=== PATIENT | female | born 1950 ===

== ENCOUNTER 2018-11-29 16:32 | Emergency (ER) | payer OTHER ==
[2018-11-29 16:49] VITALS: RESP 18; TEMP 98.1; O2SAT 97
--- NOTE | 2018-11-29 17:15 | ED PDOC ---
Arrival/HPI - General Chief Complaint: GI Problem Time Seen by Provider: 11/29/18 16:46 Historian: Patient - History of Present Illness Narrative History of Present Illness (Text): 11/29/18 17:12 CC: vomiting, cough, feeling weak HPI: 68 yo female w/ PMH of Hypertension, GERD, and Vit D Deficiency comes to Emergency department for evaluation of cough, vomiting, and feeling weak. Patient states this started about three weeks ago when she had similar symptoms w/ productive sputum. [facility] ?Azithromycin which she completed for 10 days. Patient states initially after completing the course of abx she felt better. However, she soon began to develop the cough again which then progressed to weakness and vomiting as well. Patient has had these symptoms for past 2-3 days and decided to come to hospital before she got worse. Admits to fevers, cough, feeling weak, and nausea. Denies chest pain, shortness of breath, n/v, constipation or diarrhea, and dysuria. Time/Duration: < week Symptom Onset: Gradual Symptom Course: Worsening Activities at Onset: Rest Context: Sitting Past Medical History - Provider Review Nursing Documentation Reviewed: Yes - Reproductive Menopause: Yes - Cardiac Hx Hypertension: Yes - Hematological/Oncological Hx Anemia: Yes - Musculoskeletal/Rheumatological Hx Arthritis: Yes - Gastrointestinal Hx Gastroesophageal Reflux: Yes - Psychiatric Hx Depression: Yes Hx Substance Use: No - Surgical History Hx Orthopedic Surgery: Yes (B/L knee replacement) Other/Comment: Phil Ríos Family/Social History - Physician Review Nursing Documentation Reviewed: Yes Family/Social History: No Known Family HX Smoking Status: Current Some Days Smoker Hx Alcohol Use: No Hx Substance Use: No Allergies/Home Meds Allergies/Adverse Reactions: Allergies No Known Allergies Allergy (Verified 11/29/18 16:38) Review of Systems - Review of Systems Constitutional: Fevers. absent: Normal, Fatigue, Weight Change Eyes: Normal. absent: Vision Changes, Photophobia, Eye Pain ENT: Normal. absent: Hearing Changes, Tinnitus Respiratory: Cough, Sputum. absent: Normal, SOB Cardiovascular: Normal. absent: Chest Pain, Palpitations, Edema, Calf Pain Gastrointestinal: Nausea, Vomiting. absent: Normal, Abdominal Pain, Stool Changes, Constipation, Diarrhea Genitourinary Female: Normal. absent: Dysuria, Frequency, Hematuria Musculoskeletal: Normal. absent: Arthralgias, Back Pain, Neck Pain, Joint Swelling Skin: Normal. absent: Rash, Pruritis, Skin Lesions Neurological: Normal. absent: Headache, Dizziness, Focal Weakness Endocrine: Normal. absent: Diaphoresis, Polyuria, Polydipsia Psychiatric: Normal. absent: Anxiety, Depression Physical Exam Vital Signs Reviewed: Yes Vital Signs Temp Pulse Resp BP Pulse Ox 11/29/18 16:33 98.1 F 82 18 166/92 H 97 Temperature: Afebrile Blood Pressure: Hypertensive Pulse: Regular Respiratory Rate: Normal Appearance: Positive for: Well-Appearing, Non-Toxic, Comfortable Pain Distress: None Mental Status: Positive for: Alert and Oriented X 3 - Systems Exam Head: Present: Atraumatic, Normocephalic. No: Tenderness Pupils: Present: PERRL Extroacular Muscles: Present: EOMI Conjunctiva: Present: Normal Mouth: Present: Dry. No: Moist Mucous Membranes Pharnyx: Present: Normal. No: ERYTHEMA, EXUDATE, TONSILS ENLARGED, Peritonsilar Swelling, Uvular Deviation Neck: Present: Normal Range of Motion. No: Meningeal Signs, JVD Respiratory/Chest: Present: Clear to Auscultation, Good Air Exchange. No: Respiratory Distress, Accessory Muscle Use, Wheezes, Decreased Breath Sounds Cardiovascular: Present: Regular Rate and Rhythm, Normal S1, S2. No: Murmurs, Irregular Rhythm, Peripheal Pulses Present Abdomen: Present: Normal Bowel Sounds. No: Tenderness, Distention, Peritoneal Signs Upper Extremity: Present: Normal Inspection. No: Cyanosis, Edema, Tenderness Lower Extremity: Present: Normal Inspection. No: Edema, CALF TENDERNESS Neurological: Present: GCS=15, CN II-XII Intact, Speech Normal Skin: Present: Warm, Dry, Normal Color. No: Rashes Lymphatic: No: Cervical Adenopathy Psychiatric: Present: Alert, Oriented x 3, Normal Insight, Normal Concentration Medical Decision Making ED Course and Treatment: 11/29/18 17:20 Impression 68 yo female w/ PMH of Hypertension, GERD, and Vit D Deficiency comes to Emergency department for evaluation of cough, vomiting, and feeling weak. Plan -CBC -CMP -Chest X-ray -Rapid Flu Prior Visits No prior visits Progress Notes pending imaging and labs for dispo 11/29/18 18:53 Patient comfortable w/o complaints Patient understands that she must followup with her primary medical doctor Patient was instructed to use Dayquil for cough symptom. Re-evaluation Time: 18:53 Reassessment Condition: Re-examined, Improved - Lab Interpretations Lab Results: 11/29/18 17:40 11/29/18 17:40 Lab Results 11/29/18 17:40: Influenza Typ A,B (EIA) Negative for flu a/b 11/29/18 17:40: Sodium 139, Potassium 3.6, Chloride 109 H, Carbon Dioxide 19 L, Anion Gap 15, BUN 17, Creatinine 0.6 L, Est GFR ( Amer) > 60, Est GFR (Non-Af Amer) > 60, Random Glucose 125 H, Calcium 10.3, Total Bilirubin 0.5, AST 20, ALT 25, Alkaline Phosphatase 125, Total Protein 7.9, Albumin 4.5, Globulin 3.4, Albumin/Globulin Ratio 1.3 11/29/18 17:40: WBC 7.5, RBC 3.46 L, Hgb 11.0 L, Hct 33.4 L, MCV 96.5, MCH 31.8, MCHC 32.9, RDW 13.1, Plt Count 557 H, MPV 8.6, Neut % (Auto) 80.6 H, Lymph % (Auto) 14.5 L, [place] % (Auto) 4.2, Eos % (Auto) 0.3 L, Baso % (Auto) 0.4, Lymph # (Auto) 1.1 L, [place] # (Auto) 0.3, Eos # (Auto) 0.0, Baso # (Auto) 0.03, Absolute Neuts (auto) 6.07 I have reviewed the lab results: Yes Interpretation: All labs normal - RAD Interpretation Radiology Orders: 11/29/18 17:10 CHEST PORTABLE [RAD] Stat Biological Sciences Instructor: Radiologist Disposition/Present on Arrival - Present on Arrival Any Indicators Present on Arrival: No History of DVT/PE: No History of Uncontrolled Diabetes: No Urinary Catheter: No History of Decub. Ulcer: No History Surgical Site Infection Following: CABG - Mediastinitis, None - Disposition Have Diagnosis and Disposition been Completed?: Yes Diagnosis: Viral URI with cough Disposition: HOME/ ROUTINE Disposition Time: 18:55 Patient Plan: Discharge Condition: FAIR Additional Instructions: 1. Please followup with primary medical doctor within 7 days of discharge from hospital. 2. Recommended that patient use Dayquil for symptom control Prescriptions: Ondansetron [Zofran] 4 mg PO Q8H #12 tab Forms: [facility] (Nepali)
[2018-11-29 17:51] LABS: BASO # 0.03 K/mm3 (0.0-2.0); BASO % 0.4 % (0.0-3.0); EOS % 0.3 % (1.5-5.0); LYMPH # 1.1 (1.2-3.4); LYMPH % 14.5 % (22.0-35.0); MEAN CELL VOLUME 96.5 fl (80.0-105.0); MEAN CORPUSCULAR HEMOGLOBIN 31.8 pg (25.0-35.0); MEAN CORPUSCULAR HGB CONC 32.9 g/dl (31.0-37.0); MEAN PLATELET VOLUME 8.6 fl (7.0-11.0); MONO # 0.3 (0.1-0.6); MONO % 4.2 % (1.0-6.0); RBC 3.46 10^6/uL (3.5-6.1); RED CELL DISTRIBUTION WIDTH 13.1 % (11.5-14.5); WHITE BLOOD COUNT 7.5 10^3/uL (4.5-11.0)
--- NOTE | 2018-11-29 17:51 | RAD ---
Date of service: 11/29/2018 HISTORY: Cough COMPARISON: No prior. FINDINGS: LUNGS: No active pulmonary disease. PLEURA: No significant pleural effusion identified, no pneumothorax apparent. CARDIOVASCULAR: No atherosclerotic calcification present No radiographic findings to suggest acute or significant cardiovascular disease. OSSEOUS STRUCTURES: No significant abnormalities. VISUALIZED UPPER ABDOMEN: Normal. OTHER FINDINGS: None. IMPRESSION: No active disease.
[2018-11-29 18:00] LABS: ALB/GLOB RATIO 1.3 (1.1-1.8); ALBUMIN 4.5 g/dL (3.0-4.8); ALT/SGPT 25 U/L (7-56); AST/SGOT 20 U/L (14-36); BLOOD UREA NITROGEN 17 mg/dL (7-21); CALCIUM 10.3 mg/dL (8.4-10.5); GFR NON-AFRICAN AMERICAN > 60
[2018-11-29 19:04] VITALS: BP 115/58; PULSE 83
== END 2018-11-29 19:19 | disposition home or self-care (01) ==
LOC: ED 16:32
DX: J06.9 Acute upper respiratory infection, unspecified (principal); R05 Cough; I10 Essential (primary) hypertension; E55.9 Vitamin D deficiency, unspecified
CPT/HCPCS: 71045; 80053; 85025; 87804; 96374; 99284; J2405

== ENCOUNTER 2018-11-29 20:13 | Emergency (ER) | payer OTHER ==
[2018-11-29 20:54] VITALS: TEMP 98.3
[2018-11-29 21:46] LABS: PH,URINE 6.5 (4.7-8.0); URINE BILIRUBIN NEGATIVE (NEGATIVE); URINE BLOOD NEGATIVE (NEGATIVE); URINE GLUCOSE (UA) NEGATIVE (NEGATIVE); URINE LEUKOCYTE ESTERASE NEGATIVE Leu/uL (NEGATIVE); URINE PROTEIN 30 mg/dL (<30 mg/dL); URINE UROBILINOGEN 0.2 E.U./dL (<1 E.U./dL)
[2018-11-29 21:52] LABS: URINE APPEARANCE SLIGHT-CLOUDY (CLEAR); URINE COLOR YELLOW (YELLOW)
[2018-11-29] MEDS ORDERED: Iohexol 350 MG/100 ML VIAL ONE (22:09)
--- NOTE | 2018-11-29 23:24 | ED PDOC ---
Arrival/HPI - General Chief Complaint: GI Problem Historian: Patient - History of Present Illness Narrative History of Present Illness (Text): 11/29/18 23:21 68 year old female, whose past medical history includes Hypertension, GERD, and Vit D Deficiency presents to Emergency department complaining of headache, nausea, and dizziness for the past 1 day. Patient was in the ER earlier today and was discharged for different complaints. Patient denies any fever, chills, chest pain, shortness of breath, vomiting, diarrhea, urinary symptoms, back pain, neck pain, or any other complaints. Time/Duration: Other (1 day) Symptom Onset: Gradual Symptom Course: Unchanged Activities at Onset: Light Context: Home Past Medical History - Provider Review Nursing Documentation Reviewed: Yes - Cardiac Hx Cardiac Disorders: Yes Hx Hypertension: Yes - Hematological/Oncological Hx Blood Disorders: Yes Hx Anemia: Yes - Musculoskeletal/Rheumatological Hx Musculoskeletal Disorders: Yes Hx Arthritis: Yes - Gastrointestinal Hx Gastrointestinal Disorders: Yes Hx Gastroesophageal Reflux: Yes - Psychiatric Hx Psychophysiologic Disorder: Yes Hx Depression: Yes Hx Substance Use: No - Surgical History Hx Orthopedic Surgery: Yes (B/L knee replacement) Other/Comment: Bunoin Sx, fibroid removal Family/Social History - Physician Review Nursing Documentation Reviewed: Yes Family/Social History: No Known Family HX Smoking Status: Current Some Days Smoker Hx Alcohol Use: No Hx Substance Use: No Allergies/Home Meds Allergies/Adverse Reactions: Allergies No Known Allergies Allergy (Verified 11/29/18 20:49) Review of Systems - Physician Review All systems were reviewed & negative as marked: Yes - Review of Systems Constitutional: absent: Fevers, Other (chills) Respiratory: absent: SOB Cardiovascular: absent: Chest Pain Gastrointestinal: absent: Diarrhea, Nausea, Vomiting Genitourinary Female: absent: Dysuria, Frequency, Hematuria Musculoskeletal: absent: Back Pain, Neck Pain Neurological: absent: Headache, Dizziness Physical Exam Vital Signs Reviewed: Yes Vital Signs Temp Pulse Resp BP Pulse Ox 11/29/18 22:34 89 18 143/86 96 11/29/18 20:49 98.3 F 87 18 122/78 97 Temperature: Afebrile Blood Pressure: Normal Pulse: Regular Respiratory Rate: Normal Appearance: Positive for: Well-Appearing, Non-Toxic, Comfortable Pain Distress: None Mental Status: Positive for: Alert and Oriented X 3 - Systems Exam Head: Present: Atraumatic, Normocephalic Pupils: Present: PERRL Extroacular Muscles: Present: EOMI Conjunctiva: Present: Normal Mouth: Present: Moist Mucous Membranes Neck: Present: Normal Range of Motion Respiratory/Chest: Present: Clear to Auscultation, Good Air Exchange. No: Respiratory Distress, Accessory Muscle Use Cardiovascular: Present: Regular Rate and Rhythm, Normal S1, S2. No: Murmurs Abdomen: No: Tenderness, Distention, Peritoneal Signs Back: Present: Normal Inspection Upper Extremity: Present: Normal Inspection. No: Cyanosis, Edema Lower Extremity: Present: Normal Inspection. No: Edema Neurological: Present: GCS=15, Speech Normal Skin: Present: Warm, Dry, Normal Color. No: Rashes Psychiatric: Present: Alert, Oriented x 3, Normal Insight, Normal Concentration Medical Decision Making ED Course and Treatment: 11/29/18 23:23 Impression: 68 year old female presents complaining of headache, nausea, and dizziness for the past 1 day. Plan: -- CT Abd & Pelvis -- CT Head -- Labs -- Antivert, Toradol, Zofran Inj -- Urine Culture -- Rapid Flu -- Urinalysis w/ micro -- Reassess and disposition Prior Visits: Notes and results from previous visits were reviewed. Progress Notes: EXAM: CT Head without Intravenous Contrast. Electronically signed on November 29, 2018 10:37:24 PM EDT by: Samy Atwood M.D. IMPRESSION: 1. There is generalized parenchymal atrophy. 2. Severe chronic periventricular and subcortical microvascular disease is seen. 3. No acute intracranial pathology. EXAM: CT Abdomen and Pelvis with IV contrast Electronically signed on November 29, 2018 11:13:01 PM EDT by: Samy Atwood M.D. IMPRESSION: 1. A small hiatal hernia is noted. 2. Hepatomegaly. 3. Diverticulosis coli as described above; most pronounced in the left hemicolon. 4. Evidence of colitis involving the transverse, descending and sigmoid colon. 5. Findings suggestive of both acute and chronic cystitis. 6. Thickening of the adrenal glands bilaterally may indicate adrenal hyperplasia. 7. Evidence of advanced degenerative disc disease at all levels of the visualized lower thoracic spine and all levels of the lumbar spine. 11/29/18 23:45 On re-evaluation, patient feels better and is in no acute distress. I have discussed the results and plan with the patient, who expresses understanding. Patient in agreement with plan to be discharged home. Patient is stable for discharge. Patient was instructed to follow up with physician or return if symptoms worsen or new concerning symptoms arise. - Lab Interpretations Lab Results: Urine Color Yellow (YELLOW) 11/29/18 21:35 Urine Appearance Slight-cloudy (CLEAR) 11/29/18 21:35 Urine pH 6.5 (4.7-8.0) 11/29/18 21:35 Ur Specific [place] 1.025 (1.005-1.035) 11/29/18 21:35 Urine Protein 30 mg/dL (<30 mg/dL) H 11/29/18 21:35 Urine Glucose (UA) Negative mg/dL (NEGATIVE) 11/29/18 21:35 Urine Ketones Trace mg/dL (NEGATIVE) H 11/29/18 21:35 Urine Blood Negative (NEGATIVE) 11/29/18 21:35 Urine Nitrate Negative (NEGATIVE) 11/29/18 21:35 Urine Bilirubin Negative (NEGATIVE) 11/29/18 21:35 Urine Urobilinogen 0.2 E.U./dL (<1 E.U./dL) 11/29/18 21:35 Ur Leukocyte Esterase Negative Deo/uL (NEGATIVE) 11/29/18 21:35 Urine RBC TEST NOT PERFORMED 11/29/18 21:35 Urine WBC 2 - 5 /hpf (0-6) 11/29/18 21:35 Ur Epithelial Cells 6 - 8 /hpf (0-5) H 11/29/18 21:35 I have reviewed the lab results: Yes - RAD Interpretation Radiology Orders: 11/29/18 21:05 ABD & PELVIS IV CONTRAST ONLY [CT] Stat HEAD W/O CONTRAST [CT] Stat Bridge Construction Inspector: Radiologist - Medication Orders Current Medication Orders: Discontinued Medications Ketorolac Tromethamine (Toradol) 30 mg IVP STAT STA Stop: 11/29/18 21:06 Last Admin: 11/29/18 21:31 Dose: 30 mg MAR Pain Assessment Document 11/29/18 21:31 KV (Rec: 11/29/18 21:31 KV [id number]) Pain Reassessment Is this a pain reassessment? No IVP Administration Document 11/29/18 21:31 KV (Rec: 11/29/18 21:31 KV [id number]) Charges for Administration # of IVP Administrations 1 Re-Assess: SLICK Pain Assessment Document 11/29/18 22:31 KV (Rec: 11/29/18 23:08 KV [id number]) Pain Reassessment Is this a pain reassessment? Yes Sleep Is patient sleeping during reassessment? Yes Meclizine HCl (Antivert) 25 mg PO STAT STA Stop: 11/29/18 21:06 Last Admin: 11/29/18 21:29 Dose: 25 mg Ondansetron HCl (Zofran Inj) 8 mg IVP STAT STA Stop: 11/29/18 21:06 Last Admin: 11/29/18 21:31 Dose: 8 mg IVP Administration Document 11/29/18 21:31 KV (Rec: 11/29/18 21:31 KV [id number]) Charges for Administration # of IVP Administrations 1 - Scribe Statement The provider has reviewed the documentation as recorded by the Scribdora Vallejo Provider Scribe Attestation: All medical record entries made by the Scribe were at my direction and personally dictated by me. I have reviewed the chart and agree that the record accurately reflects my personal performance of the history, physical exam, medical decision making, and the department course for this patient. I have also personally directed, reviewed, and agree with the discharge instructions and disposition. Disposition/Present on Arrival - Present on Arrival Any Indicators Present on Arrival: No History of DVT/PE: No History of Uncontrolled Diabetes: No Urinary Catheter: No History of Decub. Ulcer: No History Surgical Site Infection Following: CABG - Mediastinitis, None - Disposition Have Diagnosis and Disposition been Completed?: Yes Diagnosis: Dizziness, Colitis Disposition: HOME/ ROUTINE Disposition Time: 23:10 Condition: GOOD Discharge Instructions (ExitCare): Vertigo (a Type of Dizziness) (DC) Additional Instructions: DARRELL MESA, thank you for letting us take care of you today. The emergency medical care you received today was directed at your acute symptoms. If you were prescribed any medication, please fill it and take as directed. It may take several days for your symptoms to resolve. Return to the Emergency Department if your symptoms worsen, do not improve, or if you have any other problems. Please contact your doctor or call one of the physicians/clinics you have been referred to that are listed on the Patient Visit Information form that is included in your discharge packet. Bring any paperwork you were given at discharge with you along with any medications you are taking to your follow up visit. Our treatment cannot replace ongoing medical care by a primary care provider outside of the emergency department. Thank you for allowing the [facility] team to be part of your care today. Follow up with your primary care doctor in 2-3 days for re-evaluation and further management. Prescriptions: Meclizine [Meclizine*] 25 mg PO Q6 PRN #20 tab PRN Reason: Dizziness metroNIDAZOLE [Flagyl] 500 mg PO Q8 #20 tab Referrals: PCP,NO [Primary Care Provider] - Follow up with primary Forms: [employer] (Danish)
[2018-11-29 23:59] VITALS: BP 122/61; PULSE 75; RESP 16; O2SAT 98
--- NOTE | 2018-11-30 10:51 | CT ---
Date of service: 11/29/2018 PROCEDURE: CT HEAD WITHOUT CONTRAST. HISTORY: r/o ICH COMPARISON: None available. TECHNIQUE: Axial computed tomography images were obtained through the head/brain without intravenous contrast. Radiation dose: Total exam DLP = 1164.98 mGy-cm. This CT exam was performed using one or more of the following dose reduction techniques: Automated exposure control, adjustment of the mA and/or kV according to patient size, and/or use of iterative reconstruction technique. FINDINGS: HEMORRHAGE: No intracranial hemorrhage. BRAIN: No mass effect or edema. Atrophy. Chronic microvascular ischemic changes. Bilateral basal ganglia lacunar infarctions. VENTRICLES: Unremarkable. No hydrocephalus. CALVARIUM: Unremarkable. Scattered scalp calcifications PARANASAL SINUSES: Unremarkable as visualized. No significant inflammatory changes. MASTOID AIR CELLS: Unremarkable as visualized. No inflammatory changes. OTHER FINDINGS: None. IMPRESSION: No acute intracranial pathology. Age-related changes.
--- NOTE | 2018-11-30 11:22 | CT ---
Date of service: 11/29/2018 PROCEDURE: CT Abdomen and Pelvis with contrast HISTORY: upper abdominal pain with nausea COMPARISON: None. TECHNIQUE: Contrast dose: 100 mL Omnipaque 350 Radiation dose: Total exam DLP = 1091.19 mGy-cm. This CT exam was performed using one or more of the following dose reduction techniques: Automated exposure control, adjustment of the mA and/or kV according to patient size, and/or use of iterative reconstruction technique. FINDINGS: LOWER THORAX: Cardiomegaly. Coronary tree and valvular calcifications. Inferior right upper and lower lobe subsegmental atelectasis/scarring. Left lower lobe subsegmental atelectasis/scarring. LIVER: Unremarkable. No gross lesion or ductal dilatation. GALLBLADDER AND BILE DUCTS: Unremarkable. PANCREAS: Unremarkable. No gross lesion or ductal dilatation. SPLEEN: Unremarkable. ADRENALS: Bilateral nodular thickening. KIDNEYS AND URETERS: Bilateral renal cysts. No hydronephrosis. No solid mass. VASCULATURE: Unremarkable. No aortic aneurysm. No aortic atherosclerotic calcification or mural plaque present. BOWEL: Small hiatal hernia. Diffuse colonic diverticulosis. No obstruction. No gross mural thickening. APPENDIX: No findings to suggest acute appendicitis. PERITONEUM: Unremarkable. No free fluid. No free air. LYMPH NODES: Unremarkable. No enlarged lymph nodes. BLADDER: Unremarkable. REPRODUCTIVE: Calcified uterine fibroid. BONES: Multilevel spinal degenerative changes. No acute fracture. OTHER FINDINGS: 1.1 cm right breast nodule, possibly intramammary lymph node. IMPRESSION: No acute abdominal pelvic pathology. Colon and urinary bladder have an unremarkable underdistended appearance. Bilateral adrenal nodular hyperplasia. 1.1 cm right breast nodule, possibly intramammary lymph node. Consider mammography for further evaluation.
== END 2018-11-30 00:25 | disposition home or self-care (01) ==
LOC: ED 20:13
DX: K52.9 Noninfective gastroenteritis and colitis, unspecified (principal); R42 Dizziness and giddiness; I10 Essential (primary) hypertension; E55.9 Vitamin D deficiency, unspecified; Z96.653 Presence of artificial knee joint, bilateral
CPT/HCPCS: 70450; 74177; 81001; 87086; 96374; 96375; 99285; J1885; J2405; Q9967